=== PATIENT | female | born 1990 | race Caucasian/White ===

== ENCOUNTER 2019-06-20 19:51 | Emergency (ER) | payer SELFPAY ==
[~2019-06-20] VITALS: Ht 180.3 cm; Wt 84.4 kg
[2019-06-20 19:58] VITALS: BP 115/76
--- NOTE | 2019-06-20 20:58 | PHYS DOC ---
Past Medical History Past Medical History: No Pertinent History Past Surgical History: No Surgical History Alcohol Use: Occasionally Drug Use: None Adult General Chief Complaint Chief Complaint: ABSCESS HPI HPI Patient is a 28 year old female who presents with pain to her right side of her behind. States it is about ongoing since Monday. The patient states that she has a skin tag there and has had hair wrapped around the skin tag which is hurting. Rates her pain as 5 out of 10 in severity and states it hurts to stand and walk. No medicines prior to arrival. Review of Systems Review of Systems Constitutional: Denies fever or chills [] Eyes: Denies change in visual acuity, redness, or eye pain [] HENT: Denies nasal congestion or sore throat [] Respiratory: Denies cough or shortness of breath [] Cardiovascular: No additional information not addressed in HPI [] GI: Denies abdominal pain, nausea, vomiting, bloody stools or diarrhea [] : Denies dysuria or hematuria [] Musculoskeletal: Denies back pain or joint pain [] Integument: Reports skin tag with hair tourniquet to her R butt cheek. Neurologic: Denies headache, focal weakness or sensory changes [] Endocrine: Denies polyuria or polydipsia [] Complete systems were reviewed and found to be within normal limits, except as documented in this note. Current Medications Current Medications Current Medications Medications (Trade) Dose Ordered Sig/Cheri Start Time Stop Time Status Last Admin Dose Admin Lidocaine HCl 20 ml 1X ONCE 06/20/19 21:00 06/20/19 21:01 DC 06/20/19 21:17 20 ML Silver Nitrate/ Potassium Nitrate 2 each 1X ONCE 06/20/19 21:00 06/20/19 21:01 DC 06/20/19 21:17 2 EACH Allergies Allergies Allergies Coded Allergies Type Severity Reaction Last Updated Verified No Known Drug Allergies 06/20/19 No Physical Exam Physical Exam Constitutional: Well developed, well nourished, no acute distress, non-toxic appearance. [] HENT: Normocephalic, atraumatic, bilateral external ears normal, oropharynx moist, no oral exudates, nose normal. [] Eyes: PERRLA, EOMI, conjunctiva normal, no discharge. [] Neck: Normal range of motion, no tenderness, supple, no stridor. [] Cardiovascular:Heart rate regular rhythm, no murmur [] Lungs & Thorax: Bilateral breath sounds clear to auscultation [] Abdomen: Bowel sounds normal, soft, no tenderness, no masses, no pulsatile masses. [] Skin: Skin tag on right butt check with hair tourniquet. Back: No tenderness, no CVA tenderness. [] Extremities: No tenderness, no cyanosis, no clubbing, ROM intact, no edema. [] Neurologic: Alert and oriented X 3, normal motor function, normal sensory function, no focal deficits noted. [] Psychologic: Affect normal, judgement normal, mood normal. [] Current Patient Data Vital Signs Vital Signs Date Time Temp Pulse Resp B/P (MAP) Pulse Ox O2 Delivery O2 Flow Rate FiO2 06/20/19 19:58 97.9 116 20 115/76 (89) 98 Room Air 97.9 EKG EKG [] Radiology/Procedures Radiology/Procedures Used iodine on area and then used 2 mL of 2% lidocaine and numbed area around skin tag. Used tweezers to pull up and cut the skin tag at the base with an #11 scalpel. This removed the skin tag and hair tourniquet. I then used silver nitrate to stop the bleeding. Nursing then placed dressing over wound. No complications. Course & Med Decision Making Course & Med Decision Making Pertinent Labs and Imaging studies reviewed. (See chart for details) Discussed with patient the options of either trying to cut the hair or just cutting the skin tag off. She choose to have the skin tag removed. Will use lidocaine and numb and remove. Dragon Disclaimer Dragon Disclaimer This electronic medical record was generated, in whole or in part, using a voice recognition dictation system. Departure Departure Impression: Primary Impression: Hair tourniquet Disposition: 01 HOME, SELF-CARE Condition: STABLE Referrals: NO PCP (PCP) Patient Instructions: Hair Tourniquet Syndrome Additional Instructions: Thank you for visiting [facility]. We appreciate you trusting us with your care. If any additional problems come up don't hesitate to return to visit us. Please follow up with your primary care provider so they can plan additional care if needed and know about the problem that you had. If symptoms worsen come back to the Emergency Department. Any concerning symptoms that start such as chest pain, shortness of air, weakness or numbness on one side of the body, running high fevers or any other concerning symptoms return to the ER. GRIFFIN MARY APRN Jun 20, 2019 20:57
[2019-06-20] MEDS ORDERED: SILVER NITRATE STICK TP ONE (21:00)
[2019-06-20] MEDS ORDERED: LIDOCAINE 2% 20 ML VIAL. IJ ONE (21:00)
== END 2019-06-20 21:55 | disposition home or self-care (01) ==
LOC: ER 19:51
DX: S30.84 External constriction of abdomen, lower back, pelvis and external genitals (principal); L91.8 Other hypertrophic disorders of the skin; W49.01XA Hair causing external constriction, initial encounter; Y93.89 Activity, other specified; Y92.89 Other specified places as the place of occurrence of the external cause; Y99.8 Other external cause status
CPT/HCPCS: 11200; 99284; J2001

== ENCOUNTER 2019-10-08 10:20 | Emergency (ER) | payer BC ==
[~2019-10-08] VITALS: Ht 180.3 cm; Wt 79.4 kg
[2019-10-08 10:54] LABS: BILIRUBIN,URINE NEGATIVE (NEG); CLARITY,URINE CLOUDY; COLOR,URINE YELLOW; NITRITE,URINE NEGATIVE (NEG); PH,URINE 6.5; PROTEIN,URINE NEGATIVE (NEG-TRACE); U PREG PATIENT NEGATIVE (NEG); UROBILINOGEN,URINE 0.2 mg/dL (0.2 mg/dL)
[2019-10-08 11:02] LABS: BASO % 1 % (0-3); EOS % 0 % (0-3); HEMATOCRIT 38.1 % (36.0-47.0); HEMOGLOBIN 12.7 g/dL (12.0-15.5); LYMPH # 1.4 x10^3/uL (1.0-4.8); LYMPH % 40 % (24-48); MEAN CORPUSCULAR HEMOGLOBIN 29 pg (25-35); MEAN CORPUSCULAR HGB CONC 33 g/dL (31-37); MEAN CORPUSCULAR VOLUME 88 fL (79-100); MONO # 0.5 x10^3/uL (0.0-1.1); MONO % 14 % (0-9); NEUT # 1.6 x10^3/uL (1.8-7.7); NEUT % 45 % (31-73); RED BLOOD COUNT 4.35 x10^6/uL (3.50-5.40); RED CELL DISTRIBUTION WIDTH 13.7 % (11.5-14.5); WHITE BLOOD COUNT 3.5 x10^3/uL (4.0-11.0)
[2019-10-08 11:03] LABS: SQUAMOUS EPITHELIAL CELL,UR MANY /LPF
[2019-10-08 11:04] LABS: BACTERIA,URINE FEW /HPF (0-FEW); RBC,URINE OCC /HPF (0-2)
[2019-10-08 11:13] LABS: CALCIUM 8.3 mg/dL (8.5-10.1); CREATININE 0.8 mg/dL (0.6-1.0); GFR 84.2; POTASSIUM 3.6 mmol/L (3.5-5.1)
[2019-10-08 11:18] LABS: ALBUMIN 3.6 g/dL (3.4-5.0); TOTAL BILIRUBIN 0.2 mg/dL (0.2-1.0); TOTAL PROTEIN 7.1 g/dL (6.4-8.2)
[2019-10-08 11:31] LABS: PLATELET COUNT 123 x10^3/uL (140-400)
[2019-10-08] MEDS ORDERED: ONDANSETRON PF 4 MG/2 ML VIAL. IV ONE (11:45)
[2019-10-08] MEDS ORDERED: IV NORMAL SALINE 1000ML BAG 1,000 ML IV ONE (11:45)
[2019-10-08] MEDS ORDERED: ONDA4TAB11 PO (13:14)
--- NOTE | 2019-10-08 13:14 | PHYS DOC ---
Past Medical History Past Medical History: No Pertinent History Past Surgical History: No Surgical History Alcohol Use: Occasionally Drug Use: None Adult General Chief Complaint Chief Complaint: ABDOMINAL PAIN HPI HPI Patient is a 28 year old female who presents to the emergency department with complaints of nasal congestion, headache, chest congestion, body aches, and chills for the last week. Patient states that she hasn't had a fever since yesterday but was running a temperature of 101 all week last week. Patient states that 2 days ago she began having nausea, vomiting, diarrhea, and abdominal cramping. She states she has vomited at least 10 times and had at least 5 episodes of diarrhea in the last 24 hours. Patient denies any blood in her emesis, sputum, or diarrhea. She denies any dysuria, increased urinary frequency, low back pain, hematuria, irregular vaginal discharge, or vaginal odor. She reports that she has felt lightheaded with position changes, she denies any syncope. Patient currently rates her pain a 10 on a 10 on the pain scale, she describes the pain as cramping, she denies any alleviating factors. The pain is worst in the lower left quadrant. All other ROS is neg unless otherwise noted in HPI. Review of Systems Review of Systems See Above Current Medications Current Medications Current Medications Medications (Trade) Dose Ordered Sig/Cheri Start Time Stop Time Status Last Admin Dose Admin Ondansetron HCl (Zofran) 4 mg 1X ONCE 10/08/19 11:45 10/08/19 11:46 DC 10/08/19 11:38 4 MG Sodium Chloride 1,000 ml @ 1,000 mls/hr 1X ONCE 10/08/19 11:45 10/08/19 12:44 DC 10/08/19 11:39 1,000 MLS/HR Allergies Allergies Allergies Coded Allergies Type Severity Reaction Last Updated Verified No Known Drug Allergies 06/20/19 No Physical Exam Physical Exam See Above Constitutional: Well developed, well nourished, no acute distress, non-toxic appearance. [] HENT: Normocephalic, atraumatic, bilateral external ears normal, dry mucous membranes, no oral exudates, nose normal. [] Eyes: PERRLA, EOMI, conjunctiva normal, no discharge. [] Neck: Normal range of motion, no stridor. [] Cardiovascular:Heart rate regular rhythm, no murmur [] Lungs & Thorax: Bilateral breath sounds clear to auscultation [] Abdomen: Bowel sounds normal, soft, no rebound tenderness, no guarding, non- tender, no masses, no pulsatile masses. [] Skin: Warm, dry, no erythema, no rash. [] Back: No tenderness, no CVA tenderness. [] Extremities: No cyanosis, ROM intact Neurologic: Alert and oriented X 3, no focal deficits noted. [] Psychologic: Affect normal, judgement normal, mood normal. [] Current Patient Data Vital Signs Vital Signs Date Time Temp Pulse Resp B/P (MAP) Pulse Ox O2 Delivery O2 Flow Rate FiO2 10/08/19 11:37 108/68 (81) 10/08/19 11:05 100 18 100 Room Air 10/08/19 10:31 98.4 98.4 Lab Values Laboratory Tests Test 10/08/19 10:40 10/08/19 10:56 Urine Collection Type Unknown Urine Color Yellow Urine Clarity Cloudy Urine pH 6.5 Urine Specific Regina 1.010 Urine Protein Negative mg/dL (NEG-TRACE) Urine Glucose (UA) Negative mg/dL (NEG) Urine Ketones (Stick) Negative mg/dL (NEG) Urine Blood Trace (NEG) Urine Nitrite Negative (NEG) Urine Bilirubin Negative (NEG) Urine Urobilinogen Dipstick 0.2 mg/dL (0.2 mg/dL) Urine Leukocyte Esterase Negative (NEG) Urine RBC Occ /HPF (0-2) Urine WBC 1-4 /HPF (0-4) Urine Squamous Epithelial Cells Many /LPF Urine Bacteria Few /HPF (0-FEW) Urine Test Negative (NEG) White Blood Count 3.5 x10^3/uL (4.0-11.0) L Red Blood Count 4.35 x10^6/uL (3.50-5.40) Hemoglobin 12.7 g/dL (12.0-15.5) Hematocrit 38.1 % (36.0-47.0) Mean Corpuscular Volume 88 fL (79-100) Mean Corpuscular Hemoglobin 29 pg (25-35) Mean Corpuscular Hemoglobin Concent 33 g/dL (31-37) Red Cell Distribution Width 13.7 % (11.5-14.5) Platelet Count 123 x10^3/uL (140-400) L Neutrophils (%) (Auto) 45 % (31-73) Lymphocytes (%) (Auto) 40 % (24-48) Monocytes (%) (Auto) 14 % (0-9) H Eosinophils (%) (Auto) 0 % (0-3) Basophils (%) (Auto) 1 % (0-3) Neutrophils # (Auto) 1.6 x10^3/uL (1.8-7.7) L Lymphocytes # (Auto) 1.4 x10^3/uL (1.0-4.8) Monocytes # (Auto) 0.5 x10^3/uL (0.0-1.1) Eosinophils # (Auto) 0.0 x10^3/uL (0.0-0.7) Basophils # (Auto) 0.0 x10^3/uL (0.0-0.2) Sodium Level 138 mmol/L (136-145) Potassium Level 3.6 mmol/L (3.5-5.1) Chloride Level 101 mmol/L (98-107) Carbon Dioxide Level 27 mmol/L (21-32) Anion Gap 10 (6-14) Blood Urea Nitrogen 7 mg/dL (7-20) Creatinine 0.8 mg/dL (0.6-1.0) Estimated GFR (Cockcroft-Gault) 84.2 BUN/Creatinine Ratio 9 (6-20) Glucose Level 119 mg/dL (70-99) H Calcium Level 8.3 mg/dL (8.5-10.1) L Magnesium Level 2.0 mg/dL (1.8-2.4) Total Bilirubin 0.2 mg/dL (0.2-1.0) Aspartate Amino Transferase (AST) 15 U/L (15-37) Alanine Aminotransferase (ALT) 14 U/L (14-59) Alkaline Phosphatase 51 U/L (46-116) Total Protein 7.1 g/dL (6.4-8.2) Albumin 3.6 g/dL (3.4-5.0) Albumin/Globulin Ratio 1.0 (1.0-1.7) Lipase 80 U/L (73-393) Laboratory Tests 10/08/19 10:56 Laboratory Tests 10/08/19 10:56 EKG EKG [] Radiology/Procedures Radiology/Procedures CBC revealed white blood cell count of 3.5, platelets of 123, otherwise unremarkable; CMP revealed glucose 119, calcium of 8.3 otherwise unremarkable; UA revealed negative hCG, 1-4 white blood cells with many squamous cells. Patient was asymptomatic there were no UTI diagnosis is made. Sophia was given a liter of normal saline and 4 mg of Zofran in the emergency Department orthostatic blood pressures were negative. Patient's abdominal exam was not concerning for surgical abdomen. Discussed findings with patient will prescribe Zofran tablets to take as needed for nausea home, recommend clear liquid diet for 24 hours then advance with starting with a Deidre diet as tolerated. Follow-up with primary care doctor if no better after 2 days. Return to the ER if symptoms worsen. Patient verbalized an understanding of home care, medications, follow-up, and return to ED instructions and was in agreement with the plan of care.] Course & Med Decision Making Course & Med Decision Making Pertinent Labs and Imaging studies reviewed. (See chart for details) dx: uri,n/v/d CBC revealed white blood cell count of 3.5, platelets of 123, otherwise unremarkable; CMP revealed glucose 119, calcium of 8.3 otherwise unremarkable; UA revealed negative hCG, 1-4 white blood cells with many squamous cells. Patient was asymptomatic there were no UTI diagnosis is made. was given a liter of normal saline and 4 mg of Zofran in the emergency Department orthostatic blood pressures were negative. Patient's abdominal exam was not concerning for surgical abdomen. Discussed findings with patient will prescribe Zofran tablets to take as needed for nausea home, recommend clear liquid diet for 24 hours then advance with starting with a Deidre diet as tolerated. Follow-up with primary care doctor if no better after 2 days. Return to the ER if symptoms worsen. Patient verbalized an understanding of home care, medications, follow-up, and return to ED instructions and was in agreement with the plan of care.] [] Dragon Disclaimer Dragon Disclaimer This electronic medical record was generated, in whole or in part, using a voice recognition dictation system. Departure Departure Impression: Primary Impression: URI with cough and congestion Additional Impression: Nausea, vomiting, and diarrhea Disposition: HOME, SELF-CARE Condition: STABLE Referrals: NO PCP (PCP) Patient Instructions: Diarrhea, [id number], Diet for Diarrhea, Adult, Nausea and Vomiting, [id number], Upper Respiratory Infection, Adult, [id number] Additional Instructions: Fill prescription(s) and use as directed. Recommend use of a Cool mist humidifier in room at bedtime. Alternate Tylenol or ibuprofen as needed for pain/fever. Increase clear fluids. Avoid airway triggers such as smoke, fragrance, dust, and pollen. May take [id number] cough suppressants as needed. Recommend clear fluids for the next 24 hours. Then you may advance to bland foods such as bananas, rice, applesauce, and dry toast. Follow-up with your primary care doctor in the next 1-2 days. Return to the emergency room if your symptoms worsen. Scripts Ondansetron Hcl (ONDANSETRON HCL) 4 Mg Tablet 1 TAB PO PRN Q6HRS PRN for NAUSEA/VOMITING for 3 Days, #10 TAB 0 Refills Prov: IVORY THOMAS APRN 10/08/19 Problem Qualifiers IVORY THOMAS APRN Oct 08, 2019 13:14
[2019-10-08 13:25] VITALS: BP 115/60
== END 2019-10-08 13:25 | disposition home or self-care (01) ==
LOC: ER 10:20
DX: J06.9 Acute upper respiratory infection, unspecified (principal); R05 Cough; R09.81 Nasal congestion; R11.2 Nausea with vomiting, unspecified; R19.7 Diarrhea, unspecified; R68.83 Chills (without fever); R09.89 Other specified symptoms and signs involving the circulatory and respiratory systems
CPT/HCPCS: 36415; 80053; 81001; 81025; 83690; 83735; 85025; 96361; 96374; 99284; J2405; J7030

== ENCOUNTER 2020-10-03 20:25 | Emergency (ER) | payer BC ==
[~2020-10-03] VITALS: Ht 177.8 cm; Wt 80.0 kg
[~2020-10-03 20:25] MED LIST: ONDA-84 PO
[2020-10-03 21:16] LABS: BILIRUBIN,URINE NEGATIVE (NEG); CLARITY,URINE CLEAR; COLOR,URINE YELLOW; NITRITE,URINE NEGATIVE (NEG); PROTEIN,URINE NEGATIVE (NEG-TRACE); UROBILINOGEN,URINE 0.2 mg/dL (0.2 mg/dL)
[2020-10-03 21:20] LABS: BASO # 0.1 x10^3/uL (0.0-0.2); BASO % 1 % (0-3); EOS # 0.3 x10^3/uL (0.0-0.7); EOS % 2 % (0-3); HEMATOCRIT 37.2 % (36.0-47.0); HEMOGLOBIN 12.7 g/dL (12.0-15.5); LYMPH # 2.8 x10^3/uL (1.0-4.8); LYMPH % 23 % (24-48); MEAN CORPUSCULAR HEMOGLOBIN 30 pg (25-35); MEAN CORPUSCULAR HGB CONC 34 g/dL (31-37); MEAN CORPUSCULAR VOLUME 88 fL (79-100); MONO # 0.9 x10^3/uL (0.0-1.1); MONO % 7 % (0-9); NEUT # 8.3 x10^3/uL (1.8-7.7); NEUT % 67 % (31-73); PLATELET COUNT 187 x10^3/uL (140-400); RED BLOOD COUNT 4.25 x10^6/uL (3.50-5.40); RED CELL DISTRIBUTION WIDTH 14.3 % (11.5-14.5); WHITE BLOOD COUNT 12.3 x10^3/uL (4.0-11.0)
[2020-10-03 21:23] LABS: BARBITURATES NEG (NEG); BENZODIAZEPINES NEG (NEG); CANNABINOIDS NEG (NEG); COCAINE NEG (NEG); METHADONE NEG (NEG); OPIATES NEG (NEG); PHENCYCLIDINE NEG (NEG)
[2020-10-03 21:25] LABS: AMPHETAMINE/METHAMPHETAMINE NEG (NEG)
[2020-10-03 21:28] LABS: CREATININE 0.8 mg/dL (0.6-1.0); GFR 83.7; POTASSIUM 3.8 mmol/L (3.5-5.1)
--- NOTE | 2020-10-03 21:30 | PHYS DOC ---
Past Medical History Past Medical History: No Pertinent History (KOFI ANDERS APRN) Past Surgical History: No Surgical History (KOFI ANDRES APRN) Smoking Status: Current Every Day Smoker Alcohol Use: Occasionally Drug Use: None (KOFI ANDERS APRN) General Adult EDM: Chief Complaint: VAGINAL BLEEDING HPI: HPI: Patient is a 29 year old female 14 para 1 presented to the ED today complaining of vaginal bleeding in as well as cramping that began 2 days ago. Patient denies any nausea vomiting. She states her last menstrual cycle was July 22, 2020. She states she is not seeing the PERSONAL [employer]JURY [employer] yet for this because she has had multiple miscarriages and was procrastinating. She states she came today because her friend requested her to come to the ED. (KOFI ANDERS APRN) Review of Systems: Review of Systems: Constitutional: Denies fever or chills. [] Eyes: Denies change in visual acuity. [] HENT: Denies nasal congestion or sore throat. [] Respiratory: Denies cough or shortness of breath. [] Cardiovascular: Denies chest pain or edema. [] GI: Reports abdominal cramping, vaginal bleeding in , denies nausea, vomiting, bloody stools or diarrhea. [] : Denies dysuria. [] Musculoskeletal: Denies back pain or joint pain. [] Integument: Denies rash. [] Neurologic: Denies headache, focal weakness or sensory changes. [] Psychiatric: Denies depression or anxiety. [] (KOFI ANDERS APRN) Heart Score: Risk Factors: Risk Factors: DM, Current or recent (<one month) smoker, HTN, HLP, family history of CAD, obesity. Risk Scores: Score 0 - 3: 2.5% MACE over next 6 weeks - Discharge Home Score 4 - 6: 20.3% MACE over next 6 weeks - Admit for Clinical Observation Score 7 - 10: 72.7% MACE over next 6 weeks - Early Invasive Strategies (KOFI ANDERS APRN) Allergies: Allergies: Allergies Coded Allergies Type Severity Reaction Last Updated Verified No Known Drug Allergies 06/20/19 No (KOIF ANDERS APRN) Physical Exam: PE: Constitutional: Well developed, well nourished, no acute distress, non-toxic ap pearance. [] HENT: Normocephalic, atraumatic, bilateral external ears normal, oropharynx moist, no oral exudates, nose normal. [] Eyes: PERRLA, EOMI, conjunctiva normal, no discharge. [] Neck: Normal range of motion, no tenderness, supple, no stridor. [] Cardiovascular:Heart rate regular rhythm, no murmur [] Lungs & Thorax: Bilateral breath sounds clear to auscultation [] Abdomen: Bowel sounds normal, soft, no tenderness, no masses, no pulsatile masses. [] Pelvic exam External pelvic appears normal, cervix is visualized, closed, no CMT, trace amount of mucousy blood in the vaginal vault. No CMT. Skin: Warm, dry, no erythema, no rash. [] Back: No tenderness, no CVA tenderness. [] Extremities: No tenderness, no cyanosis, no clubbing, ROM intact, no edema. [] Neurologic: Alert and oriented X 3, normal motor function, normal sensory function, no focal deficits noted. [] Psychologic: Affect normal, judgement normal, mood normal. [] (KOFI ANDERS APRN) Current Patient Data: Labs: Laboratory Tests Test 10/03/20 20:44 10/03/20 20:45 10/03/20 21:15 Urine Opiates Screen Neg (NEG) Urine Methadone Screen Neg (NEG) Urine Barbiturates Neg (NEG) Urine Phencyclidine Screen Neg (NEG) Urine Amphetamine/Methamphetamine Neg (NEG) Urine Benzodiazepines Screen Neg (NEG) Urine Cocaine Screen Neg (NEG) Urine Cannabinoids Screen Neg (NEG) Urine Ethyl Alcohol Neg (NEG) POC Urine HCG, Qualitative Hcg positive (Negative) White Blood Count 12.3 x10^3/uL (4.0-11.0) H Red Blood Count 4.25 x10^6/uL (3.50-5.40) Hemoglobin 12.7 g/dL (12.0-15.5) Hematocrit 37.2 % (36.0-47.0) Mean Corpuscular Volume 88 fL (79-100) Mean Corpuscular Hemoglobin 30 pg (25-35) Mean Corpuscular Hemoglobin Concent 34 g/dL (31-37) Red Cell Distribution Width 14.3 % (11.5-14.5) Platelet Count 187 x10^3/uL (140-400) Neutrophils (%) (Auto) 67 % (31-73) Lymphocytes (%) (Auto) 23 % (24-48) L Monocytes (%) (Auto) 7 % (0-9) Eosinophils (%) (Auto) 2 % (0-3) Basophils (%) (Auto) 1 % (0-3) Neutrophils # (Auto) 8.3 x10^3/uL (1.8-7.7) H Lymphocytes # (Auto) 2.8 x10^3/uL (1.0-4.8) Monocytes # (Auto) 0.9 x10^3/uL (0.0-1.1) Eosinophils # (Auto) 0.3 x10^3/uL (0.0-0.7) Basophils # (Auto) 0.1 x10^3/uL (0.0-0.2) Sodium Level 137 mmol/L (136-145) Potassium Level 3.8 mmol/L (3.5-5.1) Chloride Level 102 mmol/L (98-107) Carbon Dioxide Level 29 mmol/L (21-32) Anion Gap 6 (6-14) Blood Urea Nitrogen 13 mg/dL (7-20) Creatinine 0.8 mg/dL (0.6-1.0) Estimated GFR (Cockcroft-Gault) 83.7 BUN/Creatinine Ratio 16 (6-20) Glucose Level 95 mg/dL (70-99) Calcium Level 9.0 mg/dL (8.5-10.1) Total Bilirubin Pending Aspartate Amino Transferase (AST) Pending Alanine Aminotransferase (ALT) Pending Alkaline Phosphatase Pending Total Protein Pending Albumin Pending Albumin/Globulin Ratio Pending Ethyl Alcohol Level < 10 mg/dL (0-10) Laboratory Tests 10/03/20 21:15 Laboratory Tests 10/03/20 21:15 (KOFI ANDERS APRN) EKG: EKG: [] (KOFI ANDERS APRN) Radiology/Procedures: Radiology/Procedures: []PROCEDURE: OB <14 WKS W/TV Exam: Ultrasound OB less than 14 weeks Indication: Vaginal bleeding and Technique: Real-time grayscale and color Doppler images of the pelvis were obtained by the department automotive parts person. Comparisons: None FINDINGS: Uterus measures 10.4 x 9.2 x 6.3 cm. Within the endometrium there is a gestational sac with pole measuring 6 mm. No heart rate identified. Right ovary measures 2.6 x 2.0 x 1.2 cm. Left ovary measures 3.7 x 1.9 x 1.9 cm. Vascular flow identified within the ovaries bilaterally. No free fluid in the pelvis. IMPRESSION: Gestational sac with pole. No cardiac activity identified. Differential considerations include early IUP versus failed IUP. Recommend correlation with serial beta hCG measurements and short-term follow-up ultrasound. Electronically signed by: Melissa Jade MD (10/03/2020 10:49 PM) [facility] DICTATED and SIGNED BY: MELISSA JADE MD DATE: 10/03/20 [id number] (KOFI ANDERS APRN) Course & Med Decision Making: Course & Med Decision Making Pertinent Labs and Imaging studies reviewed. (See chart for details) This is a 29-year-old female patient 14 para 1 presented to the ED today with vaginal bleeding in as well as cramping that began 2 days ago. Last menstrual cycle July 22, 2020 Positive urine hCG. Urine analysis negative for infection, CBC with a WBC of 12.3, hemoglobin and hematocrit are normal, CMP with no acute findings. Beta- hCG 4434. Blood group O+. OB ultrasound noted for gestational sac with pole. No cardiac activity identified. Differential considerations include early IUP versus failed IUP. Recommend correlation with serial beta hCG measurements and short-term follow-up ultrasound Patient has an [employer]ERSON[employer], she was discharged home, instructed to get beta-hCG done in 2 days. Provided instructions to maintain pelvic rest. Provided instructions to return to the ED at any point symptoms worsen. (KOFI ANDERS APRN) Dragon Disclaimer: Dragon Disclaimer: This electronic medical record was generated, in whole or in part, using a voice recognition dictation system. (KOFI ANDERS APRN) Departure Departure Impression: Primary Impression: Threatened miscarriage Disposition: 01 DC HOME SELF CARE/HOMELESS Condition: STABLE Referrals: NO PCP (PCP) ZABRINA LANCASTER MD Follow-up with your [employer]ERSON[employer] in 2 days for repeat beta-hCG Patient Instructions: Threatened Miscarriage, Choo-ck-Atey Additional Instructions: You were evaluated in the emergency room for vaginal bleeding in . Your beta-hCG was 4434. Your OB ultrasound was noted for a gestational sac with a pole but no cardiac activity. This could be an early intrauterine versus a failed . Please follow-up with your PERSONAL INJURY [employer] and get a repeat beta-hCG in 2 days. Come back to the ED at any point symptoms worsen. Maintain pelvic rest including no sexual activity, no strenuous activities unti l seen by the PERSONAL INJURY [employer]GAL. Attending Signature Attending Signature I have reviewed the PA/ROAD FREIGHT FIRER's note and plan of care. I was available for consultation as needed during the patient's visit in the emergency department. I agree with the clinical impression, plan, and disposition. (GRIFFIN ROJAS DO) KOFI ANDERS APRN Oct 03, 2020 21:30 GRIFFIN ROJAS DO Oct 04, 2020 00:11
[2020-10-03 21:33] LABS: ALBUMIN 3.8 g/dL (3.4-5.0); ALBUMIN/GLOBULIN RATIO 1.2 (1.0-1.7); TOTAL BILIRUBIN 0.2 mg/dL (0.2-1.0); TOTAL PROTEIN 6.9 g/dL (6.4-8.2)
[2020-10-03 21:35] LABS: BACTERIA,URINE 0 /HPF (0-FEW); RBC,URINE OCC /HPF (0-2); WBC,URINE 0 /HPF (0-4)
[2020-10-03 21:49] VITALS: BP 122/56
--- NOTE | 2020-10-03 22:52 | RAD ---
Exam: Ultrasound OB less than 14 weeks Indication: Vaginal bleeding and Technique: Real-time grayscale and color Doppler images of the pelvis were obtained by the department pure pak machine operator. Comparisons: None FINDINGS: Uterus measures 10.4 x 9.2 x 6.3 cm. Within the endometrium there is a gestational sac with pole measuring 6 mm. No heart rate identified. Right ovary measures 2.6 x 2.0 x 1.2 cm. Left ovary measures 3.7 x 1.9 x 1.9 cm. Vascular flow identified within the ovaries bilaterally. No free fluid in the pelvis. IMPRESSION: Gestational sac with pole. No cardiac activity identified. Differential considerations include early IUP versus failed IUP. Recommend correlation with serial beta hCG measurements and short-term follow-up ultrasound. Electronically signed by: Melissa Eldridge MD (10/03/2020 10:49 PM) [facility]
== END 2020-10-03 23:34 | disposition home or self-care (01) ==
LOC: ER 20:25
DX: O20.0 Threatened abortion (principal); F17.200 Nicotine dependence, unspecified, uncomplicated; R10.9 Unspecified abdominal pain; Z3A.01 Less than 8 weeks gestation of pregnancy
CPT/HCPCS: 36415; 76801; 76817; 80053; 80307; 81001; 81025; 84702; 85025; 86850; 86900; 86901; 99284; G0480